=== PATIENT | female | born 1985 | race Caucasian/White ===

== ENCOUNTER 2017-01-31 14:56 | Outpatient (CLI) | payer OTHER | END 2017-01-31 14:57 | disposition home or self-care (01) | DX: R10.9 Unspecified abdominal pain (principal) ==

== ENCOUNTER 2017-02-20 11:57 | Outpatient (CLI) | payer OTHER | END 2017-02-20 11:58 | disposition home or self-care (01) | DX: N60.12 Diffuse cystic mastopathy of left breast (principal); N60.11 Diffuse cystic mastopathy of right breast; N63 Unspecified lump in breast ==

== ENCOUNTER 2017-02-27 13:17 | Outpatient (CLI) | payer OTHER | END 2017-02-27 13:18 | disposition home or self-care (01) | DX: D24.2 Benign neoplasm of left breast (principal) ==